=== PATIENT | male | born 1935 | race Caucasian/White ===

== ENCOUNTER 2017-10-23 09:03 | Emergency (ER) | payer MEDICARE ==
[2012-01-04 10:08] VITALS: BMI 23.5
[2017-10-23 10:32] LABS: BASOPHILS 0 % (0-2); EOSINOPHILS 0.9 % (0-7); HEMATOCRIT 40.8 % (42.0-54.0); HEMOGLOBIN 13.5 g/dL (13.5-17.5); IMMATURE GRANULOCYTES 0.3 % (0-5); LYMPHOCYTES 11.6 % (15-50); MCHC 33.1 g/dL (31.0-37.0); MCV 87.6 fL (80.0-100.0); MONOCYTES 11.4 % (2-11); NEUTROPHILS 75.8 % (40-80); PLATELET COUNT 129 10x3/uL (130-400); RBC 4.66 10x6/uL (4.20-6.10); RDW 13.4 % (11.5-14.5); WBC 6.6 10x3/uL (4.8-10.8)
== END 2017-10-23 11:37 | disposition home or self-care (01) ==
LOC: D.ER 09:03
PROVIDERS: Nurse Practitioner Family
DX: M10.061 Idiopathic gout, right knee (principal); I10 Essential (primary) hypertension